=== PATIENT | male | born 1975 | race African-American/Black ===

== ENCOUNTER 2016-08-12 06:41 | Emergency (ER) | payer OTHER ==
[~2016-08-12] VITALS: Ht 180.3 cm; Wt 83.8 kg
[2016-08-12 06:47] VITALS: BP 136/82; PULSE 53; RESP 12; TEMP 98.2; O2SAT 99
[2016-08-12] MEDS ORDERED: ULTR50TA5 PO (07:10)
--- NOTE | 2016-08-12 07:11 | PD ---
HPI Chief Complaint: Injury Time Seen by Provider: 06:51 Travel History International Travel<30 days: No Contact w/Intl Traveler<30days: No History of Present Illness HPI yesterday while walking out of elevator at his condo, he slipped on a wet spot from trash bag? tried to break his fall by grabbing on to edge of elevator with his right pincer maneuver, now pain to right thumb. PFSH Social History Tobacco Use: No Allergies-Medications (Allergen,Severity, Reaction): Coded Allergies: No Known Allergies (Unverified , 08/12/16) Reported Meds & Prescriptions Reported Meds & Active Scripts Active Ultram (Tramadol HCl) 50 Mg Tab 50 Mg PO Q8H PRN Review of Systems Except as stated in HPI: all other systems reviewed are Neg Musculoskeletal: Positive: Limited ROM (to rt thumb) Physical Exam Narrative GENERAL: SKIN: Warm and dry. HEAD: Atraumatic. Normocephalic. EYES: Pupils equal and round. No scleral icterus. No injection or drainage. ENT: No nasal bleeding or discharge. Mucous membranes pink and moist. NECK: Trachea midline. No JVD. CARDIOVASCULAR: Regular rate and rhythm. RESPIRATORY: No accessory muscle use. Clear to auscultation. Breath sounds equal bilaterally. GASTROINTESTINAL: Abdomen soft, non-tender, nondistended. Hepatic and splenic margins not palpable. MUSCULOSKELETAL: Extremities without clubbing, cyanosis, or edema. No obvious deformities. rt thumb dip flexion causes pain and appears to prevent him from extending it actively, c/w subluxation which resolves with traction which then causes dip to be able to extend fully. (will splint in extension after xray) NEUROLOGICAL: Awake and alert. No obvious cranial nerve deficits. Motor grossly within normal limits. Five out of 5 muscle strength in the arms and legs. Normal speech. PSYCHIATRIC: Appropriate mood and affect; insight and judgment normal. Data Data Last Documented VS Vital Signs Date Time Temp Pulse Resp B/P Pulse Ox O2 Delivery O2 Flow Rate FiO2 08/12/16 06:47 98.2 53 12 136/82 99 Orders Hand, Limited (2vws) (08/12/16 ) Support Splint (08/12/16 06:56) Fiberglass Thumb Spica Adult (08/12/16 ) MDM Medical Decision Making Medical Screen Exam Complete: Yes Emergency Medical Condition: Yes Medical Record Reviewed: Yes Differential Diagnosis fx/subluxation/dislocation Narrative Course likely subluxation s/p spont reduction at bedside, will xray to eval for fracture, will splint and refer to Dr garcia for further care Diagnosis Primary Impression: Trigger thumb, right thumb Referrals: Joaquín Garcia Jr., MD Scripts Tramadol (Ultram)50 Mg Tab50 Mg PO Q8H PRN (PAIN) #15 TAB Ref 0 Prov:Gabriel Bain MD 08/12/16 Disposition: 01 DISCHARGE HOME Condition: Stable Gabriel Bain MD Aug 12, 2016 07:11
--- NOTE | 2016-08-12 07:25 | RADHPO ---
EXAM DATE/TIME: 08/12/2016 07:06 [facility] COMPARISON: No previous studies available for comparison. INDICATIONS : Fell, has right hand pain, unable to move thumb without pain and a popping noise MEDICAL HISTORY : None. SURGICAL HISTORY : None. ENCOUNTER: Initial ACUITY: 2 days PAIN SCORE: 7/10 LOCATION: Right hand FINDINGS: 2 views the right hand demonstrate no fracture or dislocation. Mineralization is within normal limits and there is no significant arthropathy. No soft tissue abnormality or radiopaque foreign body is id entified. CONCLUSION: No acute abnormality is identified. Jaylan Clemens MD on August 12, 2016 at 7:21 Board Certified Radiologist. This report was verified electronically.
== END 2016-08-12 08:09 | disposition home or self-care (01) ==
LOC: PHED 06:41
DX: M65.311 Trigger thumb, right thumb (principal); W01.0XXA Fall on same level from slipping, tripping and stumbling without subsequent striking against object, initial encounter
CPT/HCPCS: 73120; 99283; L3808